=== PATIENT | female | born 1970 | race Caucasian/White ===

== ENCOUNTER 2024-09-01 04:14 | Day surgery (SDC) | payer OTHER ==
[2024-08-30 13:23] VITALS: BMI 31.5
[2024-09-01] MEDS ORDERED: BUPIVACAINE HCL/PF 0.5% (5MG/ML) 10 ML VIAL ONE (07:19)
[2024-09-01] MEDS ORDERED: TRIAMCINOLONE ACET 40MG/1ML VIAL ONE (07:19)
[2024-09-01] MEDS ORDERED: LIDOCAINE HCL/PF 1% SDV 5ML VIAL ONE (07:20)
[2024-09-01] MEDS ORDERED: ACETAMINOPHEN 500 MG TABLET (FP) PO PRN (09:24)
[2024-09-01 11:39] VITALS: PULSE 56; RESP 20; TEMP 97.8
[2024-09-01 12:00] VITALS: BP 172/78
== END 2024-09-01 12:34 | disposition home or self-care (01) ==
LOC: JASU-SURG 04:14
PROVIDERS: ATTEND Pain Medicine Pain Medicine
DX: Z53.9 Procedure and treatment not carried out, unspecified reason (principal)

== ENCOUNTER 2024-09-16 05:00 | Day surgery (SDC) | payer OTHER ==
[2024-09-15 17:10] VITALS: BMI 31.5
[2024-09-16] MEDS ORDERED: LIDOCAINE HCL/PF 1% SDV 5ML VIAL ONE (07:14)
[2024-09-16] MEDS ORDERED: BUPIVACAINE HCL/PF 0.5% (5MG/ML) 10 ML VIAL ONE (07:14)
[2024-09-16 07:41] VITALS: RESP 20
[2024-09-16] MEDS: BUPIVACAINE HCL/PF 0.5% (5MG/ML) 10 ML VIAL IJ ONE ×3 (08:38)
[2024-09-16] MEDS: LIDOCAINE HCL 1% PRESERVATIVE FREE - 30ML VIAL IJ ONE ×3 (08:38)
[2024-09-16] MEDS: IOHEXOL 180 MG/1 ML ML IJ ONE ×3 (08:39)
[2024-09-16] MEDS: TRIAMCINOLONE ACET 40MG/1ML VIAL IM ONE ×2 (08:40)
[2024-09-16] MEDS ORDERED: ACETAMINOPHEN 500 MG TABLET (FP) PO PRN (09:08)
[2024-09-16 11:35] VITALS: BP 130/70; PULSE 78; TEMP 98
== END 2024-09-16 10:55 | disposition home or self-care (01) ==
LOC: JASU-SURG 05:00
PROVIDERS: ATTEND Pain Medicine Pain Medicine
PROC: 3E0U3BZ Introduction of Anesthetic Agent into Joints, Percutaneous Approach (ICD-10-PCS; 2024-09-16)
PROC: 3E0U33Z Introduction of Anti-inflammatory into Joints, Percutaneous Approach (ICD-10-PCS; principal; 2024-09-16 08:30)
DX: M53.3 Sacrococcygeal disorders, not elsewhere classified (principal)
CPT/HCPCS: 76000-TC-FY